=== PATIENT | female | born 1970 | race Caucasian/White ===

== ENCOUNTER 2018-08-26 09:43 | Outpatient (RCR) | payer BC, SELFPAY ==
[2018-08-26 10:10] VITALS: BP 126/87; PULSE 73; RESP 16; TEMP 37.1; BMI 31.8
--- NOTE | 2018-08-26 10:42 | HP.PCM_ITS ---
(1) Nonhealing nonsurgical wound limited to breakdown of skin Status: Acute Current Visit: Yes Code(s): T14.8XXA - Other injury of unspecified body region, initial encounter (2) Tobacco abuse disorder Status: Acute Current Visit: Yes Code(s): Z72.0 - Tobacco use (3) Allergic reaction caused by a drug Status: Acute Current Visit: Yes Code(s): T78.40XA - Allergy, unspecified, initial encounter History of Present Illness Chief Complaint: Follow-up on right lower leg wound History of Wound: 48-year-old white female that was walking her dog with a retractable dog cable leash August 07, 2018 and developed a burning type rash on the inner right lower leg. Seen by her family nurse practitioner and she cultured the top of it and start her on 2 antibiotics sulfa and Keflex. Patient is just taking Keflex 4 times a day at this time. Patient has been using topical Neosporin and has developed a terrible allergic rash around the ulcer itself the ulcer is partially scabbed partially slough over top. Past Medical History Past Medical History: Nonhealing nonsurgical wound to the right lower leg Allergies/Adverse Reactions: Allergies No Known Allergies Allergy (Verified 08/26/18 09:46) Home Medications: Ambulatory Orders Medication Instructions Recorded Acyclovir 400 mg PO TID 08/26/18 Cephalexin [Keflex] 500 mg PO 4X/DAY 08/26/18 Hydrochlorothiazide [Hctz] 25 mg PO DAILY 08/26/18 Ibuprofen 800 mg PO TID PRN 08/26/18 Nicotine [Nicoderm Cq ([facility])] 21 mg TRANSDERM. DAILY 08/26/18 Lives: Alone Smoking Status: Current every day smoker Tobacco Use: Cigarettes Alcohol: Heavy Review of Systems Constitutional: Denies: Chills, Fever Eyes: Denies: Blurred vision, Drainage, Pain HEENT: Denies: Difficulty Hearing, Difficulty Swallowing, Sore Throat, Visual Changes Cardiovascular: Denies: Chest Pain, Palpitations, Syncope Respiratory: Denies: Cough, Shortness of Breath Gastrointestinal: Denies: Abdominal Pain, Nausea, Vomiting Genitourinary: Denies: Dysuria, Frequency Musculoskeletal: Denies: Joint Pain, Muscle pain Skin: Reports: Wounds - Wound right lower leg. Denies: Jaundice, Rash Neurological: Denies: Balance problems, Change in Speech, Difficulty swallowing, Focal weakness Psychiatric: Denies: Anxiety, Depression Endocrine: Denies: Change in Body Habitus Hematologic/ Lymphatic: Denies: Adenopathy - Physical Exam Vital Signs Temp Pulse Resp BP 98.7 F 73 16 126/87 H 08/26/18 10:10 08/26/18 10:10 08/26/18 10:10 08/26/18 10:10 General: Oriented x3, Cooperative, Well developed HEENT: Atraumatic, PERRLA Oral: Moist Mucosa Neck: Supple, No JVD Lungs: Clear to auscultation, Normal air movement Cardiovascular: Regular rate, Regular Rhythm Abdomen: Bowel Sounds Present, Soft, Non Tender, No Hepato-splenomegaly Extremities: No clubbing, No edema Skin: Ulcer/ Wound - Right inner lower leg open wound, Rash Present Wound Measurements and Assessment WC - Nurse 1 - General Ulcer Measurement Start: 08/26/18 09:44 Freq: Status: Active Protocol: Activity Type Activity Date Activity User E-Sign Co-Sign Detail Recorded Client Recorded Date Recorded By Document 08/26/18 10:10 [facility] [id number] 08/26/18 10:15 [facility] 08/26/18 10:10 Wound Center Nurse 1 [Ulcer Assessment] #1- RT MEDIAL LE -Combined with other wound No -Current Size (cm) - Length 5 -Current Size (cm) - Width 6.9 -Current Size (cm) - Depth 0.1 -Total Square Cm 34.5 -Date of Last Picture (Recall this 08/26/18 field) -Photo Taken Yes -Epithelialization None Present -Tunneling No -Undermining/Tunneling No -Circular Undermining No -Exudate Amt None Present (0 %) -Wound Margin Distinct, Outline Attached -Granulation Amt None Present (0 %) -Slough/Fibrin Yes -Necrosis Amt Large (67-100%) -Necrotic Tissue Type Adherent Slough -Texture (Nery-wound Skin Appearance) Excoriation Rash -Color (Nery-wound Skin Appearance) Erythema -Temperature (Nery-wound Skin No Abnormality Appearance) (Pt Warm) -Tenderness on Palpation (Nery-wound Yes Skin Appearance) -Ulcer Cleansing Rinsed/ Irrigated with Saline -Foul Odor after Cleansing No -Anesthetic Used 5% Lidocaine Gel [Edema Assessment] -Lower Limb Edema Present No -Right Calf (cm) 41.5 -Right Ankle (cm) 23.3 -Left Calf (cm) 41.1 -Left Ankle (cm) 23.6 WC - Nurse 2 - General Ulcer CM Notes Start: 08/26/18 09:44 Freq: Status: Active Protocol: Activity Type Activity Date Activity User E-Sign Co-Sign Detail Recorded Client Recorded Date Recorded By Document 08/26/18 10:29 MW [id number] 08/26/18 10:33 MW 08/26/18 10:29 Wound Center Nurse 2 [Procedure/Treatment] #1- RT MEDIAL LE -Time 10:30 -Correct Patient Yes -Correct Side, Site, Position Yes -Correct Procedure Yes -Procedure Performed Yes -Type of Procedure Debridement -Clinical Debridement Subcutaneous -Post Debridement Size (cm) - Length 0.3 -Post Debridement Size (cm) - Width 2.4 -Post Debridement Size (cm) - Depth 0.1 -Total Square Cm 0.72 -Wound/Ulcer Outcome Not Healed -Ulcer Cleansing Rinsed/ Irrigated with Saline -Foul Odor after Cleansing No -Bioengineered Tissue No -Bleeding Controlled with Pressure -Offloading No -Treatment Response Procedure Tolerated Well [See Physician Procedure note for Specifics] Pain Scale: 0-10 Numeric [Pain] -Is Patient Pain Free? Yes Musculoskeletal: No Tenderness to Palpation of Joints or Extremities Lymphatic: No Cervical, Supraclavicular, or Inguinal Adenopathy Neurological: Cranial nerves II-XII grossly intact, Neuro grossly intact Psych/Mental Status: Normal Affect, Appropriate Debridement Note Post-Debridement Measurements/Treatment WC - Nurse 2 - General Ulcer CM Notes Start: 08/26/18 09:44 Freq: Status: Active Protocol: Activity Type Activity Date Activity User E-Sign Co-Sign Detail Recorded Client Recorded Date Recorded By Document 08/26/18 10:29 MW [id number] 08/26/18 10:33 MW 08/26/18 10:29 Wound Center Nurse 2 #1- RT MEDIAL LE -Time 10:30 -Correct Patient Yes -Correct Side, Site, Position Yes -Correct Procedure Yes -Procedure Performed Yes -Type of Procedure Debridement -Clinical Debridement Subcutaneous -Post Debridement Size (cm) - Length 0.3 -Post Debridement Size (cm) - Width 2.4 -Post Debridement Size (cm) - Depth 0.1 -Total Square Cm 0.72 -Wound/Ulcer Outcome Not Healed -Ulcer Cleansing Rinsed/ Irrigated with Saline -Foul Odor after Cleansing No -Bioengineered Tissue No -Bleeding Controlled with Pressure -Offloading No -Treatment Response Procedure Tolerated Well Pain Scale: 0-10 Numeric Is Patient Pain Free? Yes Wound debrided: Right lower extremity wound Type of Debridement: Excisional debridement Anesthesia Used: 5% Lidocaine Gel Depth: Down to and including healthy tissue Percentage of wound debrided: 100 Instrument Used: 3mm curette Tissue Removed: Slough and devitalized tissue Severity: Limited To Skin Breakdown Amount of bleeding with debridement: None Assessment/Plan Active Problems Nonhealing nonsurgical wound limited to breakdown of skin (Acute) Tobacco abuse disorder (Acute) Allergic reaction caused by a drug (Acute) Assessment: Nonhealing nonsurgical wound. Allergic reaction to antibiotic cream. Tobacco abuser. Hypertension Plan: Wash leg with antibacterial soap. Apply the Aquacel silver to the wound base moistened cover with gauze and tape. Follow-up in 1 week
== END 2018-08-29 23:59 ==
LOC: WC 09:43
PROVIDERS: Family Provider Family Medicine; PCP Family Medicine; Visit Provider Nurse Practitioner
DX: S89.81XA Other specified injuries of right lower leg, initial encounter (principal); X58.XXXA Exposure to other specified factors, initial encounter; Y93.K1 Activity, walking an animal; T78.40XA Allergy, unspecified, initial encounter; R21 Rash and other nonspecific skin eruption; F17.210 Nicotine dependence, cigarettes, uncomplicated; I10 Essential (primary) hypertension
CPT/HCPCS: 11042; 99203; G0463

== ENCOUNTER 2018-09-23 11:30 | Outpatient (RCR) | payer BC, SELFPAY ==
[2018-08-30 01:38] VITALS: BP 126/87; PULSE 73; RESP 16; TEMP 37.1
[2018-09-02 11:21] VITALS: BP 131/79; PULSE 84; RESP 16; TEMP 36; BMI 31.8
--- NOTE | 2018-09-02 12:17 | PN.PCM_ITS ---
(1) Allergic reaction caused by a drug Status: Acute Current Visit: Yes Qualifiers: Encounter type: subsequent encounter Qualified Code(s): T78.40XD - Allergy, unspecified, subsequent encounter Code(s): T78.40XA - Allergy, unspecified, initial encounter (2) Nonhealing nonsurgical wound limited to breakdown of skin Status: Acute Current Visit: Yes Code(s): T14.8XXA - Other injury of unspecified body region, initial encounter (3) Tobacco abuse disorder Status: Chronic Current Visit: Yes Code(s): Z72.0 - Tobacco use Type of Wound Chief Complaint: Follow-up on right lower leg wound History of Wound: 48-year-old white female that was walking her dog with a retractable dog cable leash August 07, 2018 and developed a burning type rash on the inner right lower leg. Seen by her family nurse practitioner and she cultured the top of it and start her on 2 antibiotics sulfa and Keflex. Patient is just taking Keflex 4 times a day at this time. Patient has been using topi miller Neosporin and has developed a terrible allergic rash around the ulcer itself the ulcer is partially scabbed partially slough over top. Progress of Wound: Today the skin around the area is healing well from the allergic reaction. The wound itself is still has some slough in the center but is healing. Patient does complain of little tenderness at the center. - Physical Exam Vital Signs Temp Pulse Resp BP 96.8 F L 84 16 131/79 H 09/02/18 11:21 09/02/18 11:21 09/02/18 11:21 09/02/18 11:21 General: Oriented x3, Cooperative, Well developed HEENT: Atraumatic, PERRLA Oral: Moist Mucosa Neck: Supple, No JVD Lungs: Clear to auscultation, Normal air movement Cardiovascular: Regular rate, Regular Rhythm Abdomen: Bowel Sounds Present, Soft, Non Tender, No Hepato-splenomegaly Extremities: No clubbing, No edema, - - Traumatic wound right leg lower Wound Measurements and Assessment WC - Nurse 1 - General Ulcer Measurement Start: 09/02/18 11:21 Freq: Status: Active Protocol: Activity Type Activity Date Activity User E-Sign Co-Sign Detail Recorded Client Recorded Date Recorded By Document 09/02/18 11:21 [id number] 09/02/18 11:24 CS 09/02/18 11:21 Wound Center Nurse 1 [Ulcer Assessment] #1- RT MEDIAL LE -Combined with other wound No -Current Size (cm) - Length 0.6 -Current Size (cm) - Width 1.5 -Current Size (cm) - Depth 0.1 -Total Square Cm 0.90 -Photo Taken No -Epithelialization None Present -Tunneling No -Undermining/Tunneling No -Circular Undermining No -Exudate Amt Small (1-33%) -Exudate Type Serous -Wound Margin Distinct, Outline Attached -Granulation Amt None Present (0 %) -Granulation Quality N/A -Slough/Fibrin Yes -Necrotic Tissue Type Adherent Slough -Structure Exposed None/Limited to Skin Breakdown -Texture (Nery-wound Skin Appearance) Scarring -Moisture (Nery-wound Skin Appearance No Abnormality ) Assessed -Color (Nery-wound Skin Appearance) No Abnormality Assessed -Temperature (Nery-wound Skin No Abnormality Appearance) (Pt Warm) -Tenderness on Palpation (Nery-wound Yes Skin Appearance) -Ulcer Cleansing Rinsed/ Irrigated with Saline -Foul Odor after Cleansing No -Anesthetic Used 4% Lidocaine Solution [Edema Assessment] -Lower Limb Edema Present NA -Left Calf (cm) 41.5 WC - Nurse 2 - General Ulcer CM Notes Start: 09/02/18 11:21 Freq: Status: Active Protocol: Activity Type Activity Date Activity User E-Sign Co-Sign Detail Recorded Client Recorded Date Recorded By Document 09/02/18 11:33 MW [id number] 09/02/18 11:35 MW 09/02/18 11:33 Wound Center Nurse 2 [Procedure/Treatment] #1- RT MEDIAL LE -Time 11:33 -Correct Patient Yes -Correct Side, Site, Position Yes -Correct Procedure Yes -Procedure Performed Yes -Type of Procedure Debridement -Clinical Debridement Subcutaneous -Post Debridement Size (cm) - Length 0.5 -Post Debridement Size (cm) - Width 2.0 -Post Debridement Size (cm) - Depth 0.1 -Total Square Cm 1.00 -Wound/Ulcer Outcome Not Healed -Ulcer Cleansing Rinsed/ Irrigated with Saline -Foul Odor after Cleansing No -Bioengineered Tissue No -Bleeding Controlled with Pressure -Offloading No -Treatment Response Procedure Tolerated Well [See Physician Procedure note for Specifics] Pain Scale: 0-10 Numeric [Pain] -Is Patient Pain Free? Yes Musculoskeletal: No Tenderness to Palpation of Joints or Extremities Lymphatic: No Cervical, Supraclavicular, or Inguinal Adenopathy Neurological: Cranial nerves II-XII grossly intact, Neuro grossly intact Psych/Mental Status: Normal Affect, Appropriate Debridement Note Post-Debridement Measurements/Treatment WC - Nurse 2 - General Ulcer CM Notes Start: 09/02/18 11:21 Freq: Status: Active Protocol: Activity Type Activity Date Activity User E-Sign Co-Sign Detail Recorded Client Recorded Date Recorded By Document 09/02/18 11:33 MW [id number] 09/02/18 11:35 MW 09/02/18 11:33 Wound Center Nurse 2 #1- RT MEDIAL LE -Time 11:33 -Correct Patient Yes -Correct Side, Site, Position Yes -Correct Procedure Yes -Procedure Performed Yes -Type of Procedure Debridement -Clinical Debridement Subcutaneous -Post Debridement Size (cm) - Length 0.5 -Post Debridement Size (cm) - Width 2.0 -Post Debridement Size (cm) - Depth 0.1 -Total Square Cm 1.00 -Wound/Ulcer Outcome Not Healed -Ulcer Cleansing Rinsed/ Irrigated with Saline -Foul Odor after Cleansing No -Bioengineered Tissue No -Bleeding Controlled with Pressure -Offloading No -Treatment Response Procedure Tolerated Well Pain Scale: 0-10 Numeric Is Patient Pain Free? Yes Wound debrided: Lower leg wound Type of Debridement: Excisional debridement Anesthesia Used: 5% Lidocaine Gel Depth: Down to and including healthy tissue Percentage of wound debrided: 100 Instrument Used: 3mm curette Tissue Removed: Slough Amount of bleeding with debridement: None Patient tolerated procedure well Assessment/Plan Active Problems Nonhealing nonsurgical wound limited to breakdown of skin (Acute) Tobacco abuse disorder (Chronic) Allergic reaction caused by a drug (Acute) Assessment: Nonhealing nonsurgical wound. Allergic reaction to antibiotic cream. Tobacco abuser. Hypertension Plan: Wash leg with antibacterial soap. Apply the Aquacel silver to the wound base moistened cover with Adaptic then gauze and tape. Follow-up in 2 week
[2018-09-23 11:23] VITALS: BMI 31.8
--- NOTE | 2018-09-23 11:41 | PN.PCM_ITS ---
(1) Allergic reaction caused by a drug Status: Acute Current Visit: Yes Qualifiers: Encounter type: subsequent encounter Qualified Code(s): T78.40XD - Allergy, unspecified, subsequent encounter Code(s): T78.40XA - Allergy, unspecified, initial encounter (2) Nonhealing nonsurgical wound limited to breakdown of skin Status: Acute Current Visit: Yes Code(s): T14.8XXA - Other injury of unspecified body region, initial encounter (3) Tobacco abuse disorder Status: Chronic Current Visit: Yes Code(s): Z72.0 - Tobacco use Type of Wound Chief Complaint: Follow-up on right lower leg wound History of Wound: 48-year-old white female that was walking her dog with a retractable dog cable leash August 07, 2018 and developed a burning type rash on the inner right lower leg. Seen by her family nurse practitioner and she cultured the top of it and start her on 2 antibiotics sulfa and Keflex. Patient is just taking Keflex 4 times a day at this time. Patient has been using topi miller Neosporin and has developed a terrible allergic rash around the ulcer itself the ulcer is partially scabbed partially slough over top. Progress of Wound: TODAY THE WOUND IS HEALED - Physical Exam Vital Signs Temp Pulse Resp BP 96.8 F L 84 16 131/79 H 09/02/18 11:21 09/02/18 11:21 09/02/18 11:21 09/02/18 11:21 General: Oriented x3, Cooperative, Well developed HEENT: Atraumatic, PERRLA Oral: Moist Mucosa Neck: Supple, No JVD Lungs: Clear to auscultation, Normal air movement Cardiovascular: Regular rate, Regular Rhythm Abdomen: Bowel Sounds Present, Soft, Non Tender, No Hepato-splenomegaly Extremities: No clubbing, No edema Skin: Ulcer/ Wound - Right medial lower extremity wound Wound Measurements and Assessment WC - Nurse 1 - General Ulcer Measurement Start: 09/02/18 11:21 Freq: Status: Active Protocol: Activity Type Activity Date Activity User E-Sign Co-Sign Detail Recorded Client Recorded Date Recorded By Document 09/23/18 11:23 [facility] [id number] 09/23/18 11:30 [facility] 09/23/18 11:23 Wound Center Nurse 1 [Ulcer Assessment] #1- RT MEDIAL LE -Combined with other wound No -Current Size (cm) - Length 0.2 -Current Size (cm) - Width 0.7 -Current Size (cm) - Depth 0.1 -Total Square Cm 0.14 -Date of Last Picture (Recall this 09/23/18 field) -Photo Taken Yes -Epithelialization Medium 34-66% -Tunneling No -Undermining/Tunneling No -Circular Undermining No -Exudate Amt Small -Exudate Type Serous -Wound Margin Distinct, Outline Attached -Granulation Amt Small (1-33%) -Granulation Quality [place] -Slough/Fibrin Yes -Necrosis Amt Large (67-100%) -Necrotic Tissue Type Adherent Slough -Structure Exposed None/Limited to Skin Breakdown -Texture (Nery-wound Skin Appearance) Scarring Rash -Moisture (Nery-wound Skin Appearance Dry/Scaly ) -Color (Nery-wound Skin Appearance) Assessed -Temperature (Nery-wound Skin No Abnormality Appearance) (Pt Warm) -Tenderness on Palpation (Nery-wound No Skin Appearance) -Ulcer Cleansing Rinsed/ Irrigated with Saline -Foul Odor after Cleansing No -Anesthetic Used 5% Lidocaine Gel [Edema Assessment] -Lower Limb Edema Present Yes -Right Calf (cm) 41 -Right Ankle (cm) 23.9 WC - Nurse 2 - General Ulcer CM Notes Start: 09/02/18 11:21 Freq: Status: Active Protocol: Activity Type Activity Date Activity User E-Sign Co-Sign Detail Recorded Client Recorded Date Recorded By Document 09/23/18 11:33 MW [id number] 09/23/18 11:35 MW 09/23/18 11:33 Wound Center Nurse 2 [Procedure/Treatment] #1- RT MEDIAL LE -Time 11:33 -Correct Patient Yes -Correct Side, Site, Position Yes -Correct Procedure Yes -Procedure Performed Yes -Type of Procedure Debridement -Clinical Debridement Subcutaneous -Post Debridement Size (cm) - Length 0 -Post Debridement Size (cm) - Width 0 -Post Debridement Size (cm) - Depth 0 -Total Square Cm 0 -Wound/Ulcer Outcome Healed- Epithelialized -Ulcer Cleansing Rinsed/ Irrigated with Saline -Foul Odor after Cleansing No -Bleeding Controlled with NA -Offloading No -Treatment Response Procedure Tolerated Well [See Physician Procedure note for Specifics] Pain Scale: 0-10 Numeric [Pain] -Is Patient Pain Free? Yes Musculoskeletal: No Tenderness to Palpation of Joints or Extremities Lymphatic: No Cervical, Supraclavicular, or Inguinal Adenopathy Neurological: Cranial nerves II-XII grossly intact, Neuro grossly intact Psych/Mental Status: Normal Affect, Appropriate Debridement Note Post-Debridement Measurements/Treatment WC - Nurse 2 - General Ulcer CM Notes Start: 09/02/18 11:21 Freq: Status: Active Protocol: Activity Type Activity Date Activity User E-Sign Co-Sign Detail Recorded Client Recorded Date Recorded By Document 09/02/18 11:33 MW [id number] 09/02/18 11:35 MW Document 09/23/18 11:33 MW [id number] 09/23/18 11:35 MW 09/02/18 09/23/18 11:33 11:33 Wound Center Nurse 2 #1- RT MEDIAL LE -Time 11:33 11:33 -Correct Patient Yes Yes -Correct Side, Site, Position Yes Yes -Correct Procedure Yes Yes -Procedure Performed Yes Yes -Type of Procedure Debridement Debridement -Clinical Debridement Subcutaneous Subcutaneous -Post Debridement Size (cm) - Length 0.5 0 -Post Debridement Size (cm) - Width 2.0 0 -Post Debridement Size (cm) - Depth 0.1 0 -Total Square Cm 1.00 0 -Wound/Ulcer Outcome Not Healed Healed- Epithelialized -Ulcer Cleansing Rinsed/ Rinsed/ Irrigated with Irrigated with Saline Saline -Foul Odor after Cleansing No No -Bioengineered Tissue No -Bleeding Controlled with Pressure NA -Offloading No No -Treatment Response Procedure Procedure Tolerated Well Tolerated Well Pain Scale: 0-10 Numeric Is Patient Pain Free? Yes Yes No debridement was completed today Assessment/Plan Active Problems Nonhealing nonsurgical wound limited to breakdown of skin (Acute) Tobacco abuse disorder (Chronic) Allergic reaction caused by a drug (Acute) Assessment: Nonhealing nonsurgical wound resolved. Allergic reaction to antibiotic cream resolved. Tobacco abuser. Hypertension Plan: Discharge from wound center follow-up as needed
== END 2018-09-29 23:59 ==
LOC: WC 11:30
PROVIDERS: Family Provider Family Medicine; PCP Family Medicine; Visit Provider Nurse Practitioner
DX: S89.81XA Other specified injuries of right lower leg, initial encounter (principal); X58.XXXA Exposure to other specified factors, initial encounter; Y93.K1 Activity, walking an animal; R21 Rash and other nonspecific skin eruption; T78.40XA Allergy, unspecified, initial encounter; I10 Essential (primary) hypertension; F17.210 Nicotine dependence, cigarettes, uncomplicated; L97.811 Non-pressure chronic ulcer of other part of right lower leg limited to breakdown of skin
CPT/HCPCS: 11042; 99213; G0463

== ENCOUNTER → 2020-09-20 | Outpatient (CLI) | payer BC, SELFPAY | END | disposition home or self-care (01) | LOC: LABSPEC 10:09 | PROVIDERS: PCP Family Medicine; Referring Provider Family Medicine; Visit Provider Family Medicine | DX: U07.1 COVID-19 (principal); J06.9 Acute upper respiratory infection, unspecified | CPT/HCPCS: 87635; C9803; U0005; U0003 ==